=== PATIENT | female | born 1995 | race Caucasian/White ===

== ENCOUNTER 2019-01-03 10:49 | Emergency (ER) | payer BC ==
[2019-01-03 11:29] VITALS: BP 113/69
--- NOTE | 2019-01-03 12:15 | UC ---
Abdominal Pain Female HPI - HPI Summary HPI Summary: pt had abd pain on friday and felt she had the stomach bug. pt states it went away friday afternoon. pt states she has tried to eat over the weekend but continued to have pain when she tried to eat. pt states it hurt the most this am when she tried to eat. pt states is nauseated. pt is 11 weeks . patient is currently being treated for a UTI and BV. - History of Current Complaint Chief Complaint: UCAbdominalPain Stated Complaint: STOMACH PAIN - Time Seen by Provider: 01/03/19 12:09 Hx Obtained From: Patient ?: Yes - 11 weeks Onset/Duration: Sudden Onset Timing: Constant Severity Currently: Moderate Pain Intensity: 7 Location: Diffuse - cramping, Suprapubic Radiates: No Character: Cramping - with eating Aggravating Factor(s): Food Alleviating Factor(s): NPO Associated Signs and Symptoms: Positive: Nausea, Vomiting Allergies/Adverse Reactions: Allergies Allergy/AdvReac Type Severity Reaction Status Date / Time No Known Allergies Allergy Verified 01/03/19 11:29 Home Medications: Home Medications Acetaminophen [Acetaminophen Extra Strength] 1,000 mg PO 01/03/19 [History] Nitrofurantoin Macrocrystal [Nitrofurantoin] 100 mg PO 01/03/19 [History] metroNIDAZOLE [Metronidazole 0.75 % gel] 1 applic TOPICAL BID 01/03/19 [History Confirmed 01/03/19] PMH/Surg Hx/FS Hx/Imm Hx Previously Healthy: No - being treated for UTI and BV currently - Surgical History Surgical History: None - Family History Known Family History: Positive: Hypertension - Social History Alcohol Use: None Substance Use Type: None Smoking Status (MU): Never Smoked Tobacco Review of Systems All Other Systems Reviewed And Are Negative: Yes Constitutional: Positive: Negative Skin: Positive: Negative Eyes: Positive: Negative ENT: Positive: Negative Respiratory: Positive: Negative Cardiovascular: Positive: Negative Gastrointestinal: Positive: Abdominal Pain, Vomiting, Nausea Genitourinary: Positive: Dysuria Motor: Positive: Negative Neurovascular: Positive: Negative Musculoskeletal: Positive: Negative Neurological: Positive: Negative Psychological: Positive: Negative Is Patient Immunocompromised?: No Physical Exam Triage Information Reviewed: Yes Appearance: No Pain Distress, Well-Nourished, Ill-Appearing Vital Signs: Initial Vital Signs Temp 97.8 F 01/03/19 11:24 Pulse 70 01/03/19 11:24 Resp 18 01/03/19 11:24 BP 113/69 01/03/19 11:24 Pulse Ox 100 01/03/19 11:24 Vital Signs Reviewed: Yes Eye Exam: Normal ENT Exam: Normal Dental Exam: Normal Neck exam: Normal Respiratory Exam: Normal Cardiovascular Exam: Normal Abdominal Exam: Normal Abdomen Description: Positive: Nontender, No Organomegaly, Soft, CVA Tenderness (R) - neg, CVA Tenderness (L) - neg Bowel Sounds: Positive: Present Musculoskeletal Exam: Normal Neurological Exam: Normal Psychological Exam: Normal Skin Exam: Normal Abd Pain Female Course/Dx - Course Course Of Treatment: hx obtained, exam performed ,meds reviewed, treaed for nuaseas, recommend follow up with OB if symptoms persist. - Differential Dx/Diagnosis Differential Diagnosis: , Urinary Tract Infection Provider Diagnosis: Nausea & vomiting, Discharge - Sign-Out/Discharge Documenting (check all that apply): Patient Departure All imaging exams completed and their final reports reviewed: No Studies - Discharge Plan Condition: Stable Disposition: HOME Prescriptions: Promethazine HCl 12.5 mg PO Q8H #21 tablet Patient Education Materials: Nausea and Vomiting in (ED) Referrals: No Primary Care Phys,NOPCP [Primary Care Provider] - Additional Instructions: 1. take the medication as prescribed. 2. Drink as tolerated. 3. eat as tolerated 4. If the nausea goes away and the pain persist please follow up with the OB associates - Billing Disposition and Condition Condition: STABLE Disposition: Home
== END 2019-01-03 12:30 | disposition home or self-care (01) ==
LOC: UCCORT 10:49
DX: O21.8 Other vomiting complicating pregnancy (principal); O99.89 Other specified diseases and conditions complicating pregnancy, childbirth and the puerperium; R10.30 Lower abdominal pain, unspecified; Z3A.11 11 weeks gestation of pregnancy
CPT/HCPCS: 99212; G0463

== ENCOUNTER 2019-07-29 00:36 | Inpatient (IN) | payer BC, MEDICAID ==
[2019-07-29] MEDS ORDERED: Buffered Lidocaine 1% SYRIN* 1 ML/SYRINGE INTRADERM ONE (00:46)
[2019-07-29] MEDS ORDERED: Lactated Ringers 1000 ML Bag* 1,000 ML IV ONE (00:46)
--- NOTE | 2019-07-29 00:55 | HP ---
General Information - Reason for Visit Contractions - General Information Maternal Age: 24 Grav: 3 Para: 1 SAB: 1 IEA: 0 Estimated Due Date: 07/24/19 Determined By: LMP Gestational Age in Weeks/Days: 40 5/7 Maternal Blood Type and Rh: A Positive - Results this Serology/RPR Result: Reactive Rubella Result: Non-Immune - rubella equivocal x 2 HBsAg Result: Negative HIV Result: Negative GBS Culture Result: Negative Past Medical History Delivery History: Hx Uncomplicated Vaginal Delivery Pertinent Past Medical History: See Records Past Medical History Comment: Migraine, without aura Depression Asthma Pertinent Past Surgical History: See Records Past Surgical History Comment: Knee surgery - 2008 Oral surgery - 1999 Pertinent Family History: See Records Family History Comment: Father: hypertension Mother: autoimmune disease - Antepartal Records Antepartal Records: Reviewed, Complicated by: - rubella equivocal x 2 , frequent UTIs, Review of Systems Constitutional: Uncomfortable CV Complaint: No Respiratory: Shortness of Breath: No Gastrointestinal: No Nausea/Vomiting, Normal Bowel Movement Genitourinary: No Dysuria, No Bleeding, No Leaking Fluid Musculoskeletal: No Epigastric Pain, Back Pain, Contractions Neurological: No Headache, No Visual Changes Movement: Normal Exam Allergies/Adverse Reactions: Allergies No Known Allergies Allergy (Verified 01/03/19 11:29) B/P: P: R: 18, T: 97.8 - Exam Breast: Breast Exam Deferred CVA: No CVA Tenderness Extremities: No Edema Heart: Normal Rhythm/Heart Sounds HEENT: No Significant Findings Lungs: Clear Bilaterally Reflexes: DTR 2+ Thyroid: No Thyromegaly - Abdominal Exam Abdomen Exam: Non-Tender, Fundal Height Consistent with Dates - Ultrasound/Biophysical Profile Ultrasound Status: Not Done Targeted Exam Findings See L&D Outpatient Visit Provider Note for Findings: N/A Estimated Weight: 8.5 lb by mumtaz's Cervical Exam: 5cm, 6cm Effacement: 90% Station: -2 Presenting Part: Vertex Membrane Status: Bulging Bleeding/Discharge: None EFM Findings - External Monitor Findings Baseline Heart Rate: 110 External Monitor Findings: Accelerations Present, No Pattern of Variable or Late Decelerations, Variability Moderate, Baseline Stable Contractions: Regular, Moderate, 45-90 Seconds Contraction Frequency: 3-6 min Assessment/Plan - Assessment A: IUP at 40 5/7 weeks Category I FHR, no evidence of metabolic acidemia GBS negative Active labor P: Admit to inpatient Desires epidural; will place IV and draw labs Reassess PRN Anticipate SVB - Obstetrical Risk Factors Obstetrical Risk Factors: Psychosocial Issues - Plan Plan: Admit - Anticipate Vaginal Delivery - Date/Time of Admission Date of Admission: 07/29/19 Time of Admission: 00:45
[2019-07-29] MEDS ORDERED: Lactated Ringers 1000 ML Bag* 1,000 ML IV SCH ×2 (01:00→02:00)
[2019-07-29] MEDS ORDERED: Oxytocin in LR* 20 UNITS/1,000 ML BAG IVPB ONE (01:11)
[2019-07-29] MEDS ORDERED: Measles, Mumps,Rubella VACC* 0.5 ML/VIAL SUBCUT ONE (01:27)
[2019-07-29] MEDS ORDERED: Dibucaine 1% 28.35 GM TUBE PR PRN (01:27)
[2019-07-29] MEDS ORDERED: Witch Hazel PAD* JAR TOPICAL PRN (01:27)
[2019-07-29] MEDS ORDERED: Glycerin ADULT SUPP PR PRN (01:27)
[2019-07-29] MEDS ORDERED: Acetaminophen TAB* 325 MG PO PRN (01:27)
[2019-07-29 01:28] LABS: ABS Eosinophils 0.1 10^3/ul (0-0.6); ABS Lymphocytes 1.7 10^3/ul (1.0-4.8); ABS Monocytes 0.8 10^3/ul (0-0.8); ABS Neutrophils 9.3 10^3/ul (1.5-7.7); Eosinophil % 0.5 %; Hematocrit 37 % (35-47); Hemoglobin 12.1 g/dL (12.0-16.0); Lymphocyte % 14.5 %; Mean Corpuscular HGB Conc 33 g/dL (31-36); Mean Corpuscular Hemoglobin 29 pg (27-31); Mean Corpuscular Volume 86 fL (80-97); Mean Platelet Volume 10.2 fL (7.4-10.4); Nucleated Red Blood Cells % 0.1; Platelet Count 175 10^3/uL (150-450); Red Blood Count 4.23 10^6 /uL (3.70-4.87); Red Cell Distribution Width 14 % (10-15); White Blood Count 11.9 10^3/uL (3.5-10.8)
--- NOTE | 2019-07-29 01:37 | PROCNOTE ---
[facility] OB: Delivery Note - Delivery A Date of : 07/29/19 Time of : 01:13 [place] Sex: Male Gestational Age in Weeks and Days at Delivery: 40 Weeks and 5 Days Delivery Method: Spontaneous Vaginal Labor: Spontaneous Did Patient attempt ?: N/A, No Previous Amniotic Fluid: Meconium Estimated Blood Loss: 200 Anesthesia/Analgesia: None Delivered By: Jazmin Nugent - Nursery Level of Nursery: Regular/Bedside - Perineum Perineal Injury: Abrasion Only - Not Repaired Perineal Injury Comment: right labial Perineal Repair: None - Events Delivery Events of Note: Pitocin Only After Delivery, Precipitous Delivery, Supplemental O2 to Mother - Additional Delivery Notes Additional Delivery Notes: at 40 5/7 weeks, admitted in spontaneous labor. Progressed quickly to complete and complete, SROM to light meconium. Pushed one minute with OA to [place], shoulders followed easily. Male delivered to maternal abdomen, dried and stimulated with spontaneous cry and HR > 110. Cord doubly clamped and cut by 's father once pulsations ceased. Intact spontaneous placenta soon followed, fundus firm with massage. Perineum and vagina carefully inspected, small abrasion at introitus and right labial laceration noted, hemostatic and not repaired. Pitocin hung at 150 cc/hr. Mother and infant stable at time of note, feeding plan is breast and bottle. EBL =200 cc.
[2019-07-29] MEDS ORDERED: Oxytocin in LR* 20 UNITS/1,000 ML BAG IVPB SCH (02:00)
[2019-07-29] MEDS: Ibuprofen TAB* 600 MG PO SCH ×4 (02:42→19:03)
[2019-07-29 04:30] LABS: Urine Benzodiazepine Screen None Detected (None Detect); Urine Opiates Screen None Detected (None Detect)
[2019-07-29] MEDS ORDERED: Simethicone TAB* 80 MG TAB.CHEW PO SCH (08:30)
[2019-07-29] MEDS: Docusate CAP* 100 MG PO SCH ×3 (08:46→20:28)
--- NOTE | 2019-07-29 10:14 | PN ---
Progress Note - Progress Note Date of Service: 07/29/19 Note: In H&P, pt RPR documented as positive. Reviewed labs from [facility]. 2013 : RPR, non-reactive. 12/22/18: Syphilis igg negative.
[2019-07-30] MEDS: Ibuprofen TAB* 600 MG PO SCH ×2 (07:24→12:29)
[2019-07-30 08:04] LABS: ABS Eosinophils 0.1 10^3/ul (0-0.6); ABS Lymphocytes 1.6 10^3/ul (1.0-4.8); ABS Monocytes 0.7 10^3/ul (0-0.8); ABS Neutrophils 7.5 10^3/ul (1.5-7.7); Eosinophil % 0.8 %; Hematocrit 35 % (35-47); Hemoglobin 11.8 g/dL (12.0-16.0); Lymphocyte % 16.5 %; Mean Corpuscular HGB Conc 34 g/dL (31-36); Mean Corpuscular Hemoglobin 30 pg (27-31); Mean Corpuscular Volume 87 fL (80-97); Mean Platelet Volume 9.4 fL (7.4-10.4); Platelet Count 171 10^3/uL (150-450); Red Blood Count 4.02 10^6 /uL (3.70-4.87); Red Cell Distribution Width 14 % (10-15); White Blood Count 9.9 10^3/uL (3.5-10.8)
[2019-07-30 08:08] VITALS: BP 118/61
[2019-07-30] MEDS ORDERED: Influenza VAC *QUAD* 2019-20* 0.5 ML SYRINGE IM ONE (09:00)
[2019-07-30] MEDS ORDERED: Ferrous Gluconate TAB* 324 MG TAB PO SCH (09:00)
[2019-07-30] MEDS: Docusate CAP* 100 MG PO SCH (11:47)
== END 2019-07-30 13:00 | disposition home or self-care (01) | DRG 560 ==
LOC: MCHOBOUT 00:36 → MCHOB 00:47
PROVIDERS: ADMIT Midwife; ATTEND Midwife
PROC: 10E0XZZ Delivery of Products of Conception, External Approach (ICD-10-PCS; principal; 2019-07-29)
DX: O48.0 Post-term pregnancy (principal); Z37.0 Single live birth; O99.344 Other mental disorders complicating childbirth; F32.9 Major depressive disorder, single episode, unspecified; O99.52 Diseases of the respiratory system complicating childbirth; O77.0 Labor and delivery complicated by meconium in amniotic fluid; O70.0 First degree perineal laceration during delivery; J45.909 Unspecified asthma, uncomplicated; Z3A.40 40 weeks gestation of pregnancy
CPT/HCPCS: 36415; 80307; 85025; 86850; 86900; 86901; 90686; A9270-GY

== ENCOUNTER 2019-10-14 10:15 | Day surgery (SDC) | payer BC, MEDICAID ==
[~2019-10-14 10:15] MED LIST: Buffered Lidocaine 1% SYRIN* 1 ML/SYRINGE INTRADERM ONE; Lactated Ringers 1000 ML Bag* 1,000 ML IV SCH; Sodium Citrate/Citric Acid* 15 ML UDC PO ONE
[2019-10-14] MEDS ORDERED: Sodium Citrate/Citric Acid* 15 ML UDC ONE (10:30)
[2019-10-14] MEDS ORDERED: Bupivacaine 0.25% EPI 200,000* 30 ML SDV ONE (12:13)
[2019-10-14] MEDS ORDERED: fentaNYL* 50 MCG/ML 2 ML VIAL (100 MCG VIAL) ONE (12:18)
[2019-10-14] MEDS ORDERED: Propofol* 10 MG/ML 20 ML BTL ONE (12:18)
[2019-10-14] MEDS ORDERED: Lidocaine 2% PF * 5 ML VIAL ONE (12:18)
[2019-10-14] MEDS ORDERED: Rocuronium* 10 MG/ML VIAL ONE (12:19)
[2019-10-14] MEDS ORDERED: Ketorolac INJ* 30 MG/ML 1 ML VIAL ONE (12:32)
[2019-10-14] MEDS ORDERED: Dexamethasone IV* 4 MG/ML 1 ML (4 MG) ONE (12:32)
[2019-10-14] MEDS ORDERED: Acetaminophen IV 1GM/100ML * 1,000 MG/100 ML VIAL IVPB ONE (12:45)
[2019-10-14] MEDS ORDERED: DiMENhydriNATE IV* 50 MG/ML VIAL IV PUSH PRN (12:45)
[2019-10-14] MEDS ORDERED: fentaNYL* 50 MCG/ML 2 ML VIAL (100 MCG VIAL) IV PRN (12:45)
[2019-10-14] MEDS ORDERED: Naloxone* 0.4 MG/ML 1 ML VIAL IV PRN (12:45)
[2019-10-14 14:30] VITALS: BP 111/76
--- NOTE | 2019-10-14 20:55 | OP ---
DATE OF OPERATION: 10/14/19 - [facility] DATE OF : 89 SURGEON: Dr. Pugh. ANESTHESIA: General endotracheal tube. PRE-OP DIAGNOSIS: Desires permanent sterilization. POST-OP DIAGNOSIS: Desires permanent sterilization. OPERATIVE PROCEDURE: Laparoscopic bilateral tubal ligation. ESTIMATED BLOOD LOSS: Minimal. FINDINGS: Include normal uterus, tubes, and ovaries. DESCRIPTION OF PROCEDURE: The patient identified, procedure identified as a laparoscopic bilateral tubal ligation. The patient was taken to the operating room, prepped and draped in the usual fashion in the dorsal lithotomy position under general anesthesia. A small infraumbilical incision was made and a Veress needle inserted through this. The abdomen was insufflated to 15 mmHg. The Veress needle was removed and a trocar was inserted. Trocar was removed from the sheath and laparoscope inserted. The above findings were noted. A second incision was made 2 cm above the pubic symphysis in the midline and a second trocar was inserted under direct visualization. The right fallopian tube was grasped in its mid portion, followed out to its fimbriated ends and fulgurated x3 and at the fimbriated ends as well. Same procedure was carried on the left after following it out to its fimbriated ends. All instruments removed from the abdomen. The abdomen was deflated of CO2. The incisions were closed using skin glue. Sponge and sponge sticks were removed from the vagina and the patient returned to recovery room in stable condition. All sponge and instrument counts were correct. [id number]/CPS #: [id number] [facility]
== END 2019-10-14 14:35 | disposition home or self-care (01) ==
LOC: OR 10:15
PROVIDERS: ATTEND Obstetrics & Gynecology
DX: Z30.2 Encounter for sterilization (principal); F17.210 Nicotine dependence, cigarettes, uncomplicated; J45.990 Exercise induced bronchospasm; F32.9 Major depressive disorder, single episode, unspecified
CPT/HCPCS: 81025; A9270-GY; J1100; J1885; J2704; J3010